=== PATIENT | female | born 1985 | race African-American/Black ===

== ENCOUNTER 2019-07-24 08:57 | Emergency (ER) | payer MEDICAID, OTHER ==
[~2019-07-24] VITALS: Ht 160 cm; Wt 86.7 kg
[2019-07-24 09:17] VITALS: BP 161/98
[2019-07-24] MEDS ORDERED: cefTRIAXone SOD 1,000 MG VL IM ONE (09:45)
[2019-07-24] MEDS ORDERED: InsuLIN REG 1unit/0.01ml Soln (100units/ml) SC ONE (10:00)
[2019-07-24] MEDS ORDERED: KETOROLAC TROMETH 60MG/2ML VIAL IM ONE (10:15)
== END 2019-07-24 10:31 | disposition home or self-care (01) ==
LOC: ER 08:59
DX: E11.65 Type 2 diabetes mellitus with hyperglycemia (principal); F17.210 Nicotine dependence, cigarettes, uncomplicated; L02.424 Furuncle of left upper limb
CPT/HCPCS: 82962; 96372; 99283; J0696; J1815; J1885

== ENCOUNTER 2019-09-26 08:54 | Emergency (ER) | payer MEDICAID ==
[~2019-09-26] VITALS: Ht 160 cm; Wt 86.6 kg
[2019-09-26 09:11] VITALS: BP 145/92
== END 2019-09-26 09:30 | disposition home or self-care (01) ==
LOC: ER 08:59
DX: L73.9 Follicular disorder, unspecified (principal); E11.9 Type 2 diabetes mellitus without complications; F17.210 Nicotine dependence, cigarettes, uncomplicated

== ENCOUNTER 2019-12-16 10:40 | Emergency (ER) | payer MEDICAID ==
[~2019-12-16] VITALS: Ht 160 cm; Wt 79.4 kg
[2019-12-16] MEDS ORDERED: cefTRIAXone SOD 1,000 MG VL IM ONE (15:00)
[2019-12-16] MEDS ORDERED: ACETAMINOPHEN 325 MG TAB PO ONE (15:15)
[2019-12-16 15:38] VITALS: BP 136/72
== END 2019-12-16 15:40 | disposition home or self-care (01) ==
LOC: ER 10:45
DX: L02.31 Cutaneous abscess of buttock (principal); R42 Dizziness and giddiness; F17.210 Nicotine dependence, cigarettes, uncomplicated; E11.9 Type 2 diabetes mellitus without complications
CPT/HCPCS: 96372; 99283; J0696

== ENCOUNTER 2021-08-21 10:26 | Emergency (ER) | payer MEDICAID ==
[~2021-08-21] VITALS: Ht 162.6 cm; Wt 86.2 kg
[2021-08-21] MEDS ORDERED: SODIUM CHLORIDE 0.9% 1,000 ML IVB ONE (11:45)
[2021-08-21] MEDS ORDERED: ONDANSETRON HCL 4 MG/2 ML VIAL IV ONE (11:45)
[2021-08-21 13:32] VITALS: BP 199/98
[2021-08-21] MEDS ORDERED: PROCHLORPERAZINE EDISYLATE 5 MG/ML 2ML VIAL IV ONE (13:45)
[2021-08-21 13:46] LABS: Basophils # (auto) 0 10 ^3/uL (0-0.2); Basophils % (auto) 0.2 % (0.0-2.0); Eosinophils # (auto) 0 10 ^3/uL (0-0.8); Hematocrit 44.6 % (36.0-46.0); Hemoglobin 14.1 g/dL (12.2-16.2); Lymphocytes # (auto) 0.8 10 ^3/uL (0.4-5.4); Lymphocytes % (auto) 4.7 % (10.0-50.0); Mean Corpuscular Hemoglobin 29.3 pg (28.0-32.0); Mean Corpuscular Hgb Conc. 31.7 g/dL (32.0-36.0); Mean Corpuscular Volume 92.6 fL (80.0-100.0); Monocytes # (auto) 0.2 10 ^3/uL (0-1.3); Monocytes % (auto) 1.3 % (0.0-12.0); Neutrophils # (auto) 15.5 10 ^3/uL (1.6-8.6); Neutrophils % (auto) 93.8 % (37.0-80.0); Red Blood Cells 4.82 10^6/uL (4.0-5.20); Red Cell Distribution Width 15.8 % (11.8-14.3); White Blood Cell 16.6 10^3/uL (4.4-10.8)
[2021-08-21 14:03] LABS: BUN/Creatinine Ratio 11.3; Calcium 9.7 mg/dL (8.5-10.1); Potassium 4.1 mmol/L (3.5-5.1)
[2021-08-21 14:06] LABS: Bilirubin, Total 0.3 mg/dL (0.2-1.0); Total Protein 9.1 g/dL (6.4-8.2)
== END 2021-08-21 16:12 | disposition left against medical advice (07) ==
LOC: ER 10:26
DX: E11.10 Type 2 diabetes mellitus with ketoacidosis without coma (principal); I10 Essential (primary) hypertension; F17.210 Nicotine dependence, cigarettes, uncomplicated
CPT/HCPCS: 36415; 71045; 80053; 83690; 83735; 84443; 85025; 93005; 96361; 96374; 96375; 99285; J0780; J2405; J7040

== ENCOUNTER 2021-08-22 04:15 | Emergency (ER) | payer MEDICAID ==
[~2021-08-22] VITALS: Ht 162.6 cm; Wt 72.6 kg
[2021-08-22 04:15] VITALS: BP 153/118
== END 2021-08-22 05:11 | disposition left against medical advice (07) ==
LOC: ER 04:15
DX: R10.13 Epigastric pain (principal); R11.2 Nausea with vomiting, unspecified; E11.65 Type 2 diabetes mellitus with hyperglycemia; Z53.21 Procedure and treatment not carried out due to patient leaving prior to being seen by health care provider

== ENCOUNTER 2023-12-31 04:44 | Emergency (ER) | payer MEDICAID ==
[~2023-12-31] VITALS: Ht 162.6 cm; Wt 75.4 kg
[2023-12-31 05:07] VITALS: PULSE 120; RESP 22; O2SAT 99
[2023-12-31] MEDS: SODIUM CHLORIDE 0.9% 1,000 ML IV ONE ×3 (05:40→07:50)
[2023-12-31] MEDS: ONDANSETRON HCL 4 MG/2 ML VIAL IV ONE (05:40)
[2023-12-31] MEDS: LORazepam 2MG/ML-1ML VIAL IV ONE (05:41)
[2023-12-31 05:58] LABS: Basophils # (auto) 0 10 ^3/uL (0-0.2); Basophils % (auto) 0.4 % (0.0-2.0); Eosinophils # (auto) 0 10 ^3/uL (0-0.8); Eosinophils % (auto) 0.3 % (0.0-7.0); Hematocrit 44.6 % (36.0-46.0); Hemoglobin 14.6 g/dL (12.2-16.2); Mean Corpuscular Hemoglobin 30.2 pg (28.0-32.0); Mean Corpuscular Hgb Conc. 32.7 g/dL (32.0-36.0); Mean Corpuscular Volume 92.3 fL (80.0-100.0); Monocytes # (auto) 0.5 10 ^3/uL (0-1.3); Neutrophils % (auto) 69.3 % (37.0-80.0); Nucleated Red Blood Cells % 0.1 %; Red Blood Cells 4.83 10^6/uL (4.0-5.20); Red Cell Distribution Width 16.1 % (11.8-14.3); White Blood Cell 11.6 10^3/uL (4.4-10.8)
[2023-12-31 06:00] LABS: Alanine Aminotransferase 14 U/L (7-40); Albumin 4.8 g/dL (3.2-4.8); Alkaline Phosphatase 68 U/L (46-116); Anion Gap 11 (5-15); Aspartate Aminotransferase 21 U/L (13-40); BUN/Creatinine Ratio 7.2 (10.0-20.0); Blood Urea Nitrogen 6 mg/dL (9-23); Calcium 9.6 mg/dL (8.7-10.4); Carbon Dioxide 20 mmol/L (20-30); Chloride 104 mmol/L (98-107); Glucose 329 mg/dL (74-106); Lipase 59 U/L (12-53); Potassium 3.8 mmol/L (3.5-5.1); Sodium 135 mmol/L (136-145)
[2023-12-31 06:01] LABS: Bilirubin, Total 0.3 mg/dL (0.2-1.0); Total Protein 8.2 g/dL (5.7-8.2)
[2023-12-31 06:42] LABS: Urine Bacteria NONE SEEN /hpf (None Seen); Urine Blood TRACE /uL (Negative); Urine Clarity Clear (Clear); Urine Color Colorless (Yellow); Urine Protein, UAD 1+ (Negative); Urine Specific Gravity 1.037 (1.001-1.035); Urine Urobilinogen Normal (Negative); Urine WBC 1 /hpf (0 - 5); Urine pH 5.5 (5.0-8.0)
[2023-12-31 06:59] LABS: Amphetamine Screen, Urine Neg (NEGATIVE); Barbiturate Scree,Urine Neg (NEGATIVE); Benzodiazephine Screen, Urine Neg (NEGATIVE); Cannabinoid Screen, Urine Pos (NEGATIVE); Cocaine Screen, Urine Neg (NEGATIVE); Opiate Scree,Urine Neg (NEGATIVE); Phencyclidine Screen, Urine Neg (NEGATIVE)
[2023-12-31] MEDS: LABETALOL HCL 5 MG/ML 4ML SYRINGE IV ONE (07:03)
[2023-12-31] MEDS: InsuLIN REG 1unit/0.01ml Soln (100units/ml) IV ONE (07:06)
[2023-12-31 07:50] VITALS: PULSE 103; RESP 15; TEMP 98.4; O2SAT 98
[2023-12-31 09:00] VITALS: BP 164/80; PULSE 104; RESP 21; O2SAT 97
== END 2023-12-31 09:30 | disposition left against medical advice (07) ==
LOC: ER 04:44
DX: E11.65 Type 2 diabetes mellitus with hyperglycemia (principal); R10.2 Pelvic and perineal pain; R74.8 Abnormal levels of other serum enzymes; I10 Essential (primary) hypertension; F17.210 Nicotine dependence, cigarettes, uncomplicated; F12.10 Cannabis abuse, uncomplicated; Z79.899 Other long term (current) drug therapy
CPT/HCPCS: 36415; 74176; 80053; 80307; 81001; 82962; 83690; 84702; 85025; 96361; 96374; 96375; 99285; J1815; J2060; J2405; J3490; J7030

== ENCOUNTER 2025-01-08 01:01 | Emergency (ER) | payer MEDICAID ==
[~2025-01-08] VITALS: Ht 162.6 cm; Wt 73.6 kg
[2025-01-08] MEDS: ONDANSETRON ODT 4 MG TAB PO ONE (02:23)
[2025-01-08] MEDS: LORazepam 0.5 MG TAB PO ONE (02:23)
[2025-01-08 02:24] VITALS: BP 165/97; TEMP 98.1
[2025-01-08 02:25] VITALS: PULSE 99; RESP 17; O2SAT 100
== END 2025-01-08 02:31 | disposition left against medical advice (07) ==
LOC: ER 01:01
DX: F41.0 Panic disorder [episodic paroxysmal anxiety] (principal); Z53.21 Procedure and treatment not carried out due to patient leaving prior to being seen by health care provider
CPT/HCPCS: Q0162